=== PATIENT | female | born 1960 | race Caucasian/White ===

== ENCOUNTER 2017-03-31 23:11 | Observation (INO) | payer OTHER ==
[2017-03-31] MEDS ORDERED: NS 1,000 ML IV ONE (23:16)
--- NOTE | 2017-03-31 23:20 | EDPHY ---
H & P HPI/ROS: HPI CHIEF COMPLAINT: Abdominal pain HISTORY OF PRESENT ILLNESS: Patient is a very pleasant 56-year-old female no significant medical history does not take any daily medications she [place]. She states around 730 this evening she was standing up and sewing and developed sudden- onset abdominal pain rather severe. She states she could not stand erect. She then developed pain kind of diffusely through abdomen and now it is localized to right lower quadrant. She denies fever. Does have nausea but no vomiting. Chest pain or shortness of breath. Denies pleuritic pain. Denies urinary symptoms or back pain. Main complaint right lower quadrant pain. Currently 3/ She did receive 50 mcg IV fentanyl in route. Past Medical History: No significant medical history Past Surgical History: No significant surgical history except for bunionectomy Social History: Lives in [place], denies daily use of drugs alcohol tobacco products. Family History: Noncontributory ROS REVIEW OF SYSTEMS: A comprehensive 10 point review of systems is otherwise negative aside from elements mentioned in the history of present illness. Exam Constitutional appears well nontoxic no acute distress, triage nursing summary reviewed, vital signs reviewed, awake/alert. Eyes normal conjunctivae and sclera, EOMI, PERRLA. HENT normal inspection, atraumatic, moist mucus membranes, no epistaxis, neck supple/ no meningismus, no raccoon eyes. Respiratory clear to auscultation bilaterally, normal breath sounds, no respiratory distress, no wheezing. Cardiovascular rate normal, regular rhythm, no murmur, no edema, distal pulses normal. Gastrointestinal tender palpation right lower quadrant no peritoneal signs no rebound, no guarding, normal bowel sounds, no distension, no pulsatile mass. Genitourinary no CVA tenderness. Musculoskeletal no midline vertebral tenderness, full range of motion, no calf swelling, no tenderness of extremities, no meningismus, good pulses, neurovascularly intact. Skin pink, warm, & dry, no rash, skin atraumatic. Neurologic awake, alert and oriented x 3, AAOx3, moves all 4 extremities equally, motor intact, sensory intact, CN II-XII intact, normal cerebellar, normal vision, normal speech. Psychiatric normal mood/affect. Heme/Lymph/Immune no lymphadenopathy. Differential diagnosis includes but is not limited to and in no particular order : Bowel obstruction, appendicitis, gallbladder disease, diverticulitis, colitis , enteritis, perforated viscus, gastritis, GERD, esophagitis, urinary tract infection, pyelonephritis, kidney stones Medical Decision Making: Plan for this patient IV establishment with fluid bolus, IV Dilaudid for pain control IV Zofran for nausea check basic blood work , CT scan abdomen pelvis with IV contrast for rule out acute appendicitis. Re-evaluation: 1244: CT scan abdomen pelvis with IV contrast shows 6 mm fluid-filled appendix with no episode is seal stranding. Otherwise CT scan shows a picture looking like gastroenteritis. No acute inflammatory process seen. 0113AM: I did re-examine the patient at this time. She still has ongoing right lower quadrant pain. Given the ongoing right lower quadrant pain past surgery Dr. Samuel to come and see and evaluate the patient. Given her leukocytosis, right lower quadrant pain CT scan does show 6.3 mm appendix. 0152AM: Dr. Samuel with Surgery has seen and evaluated the patient. He will admit the patient for observation overnight for abdominal pain. Given her right lower quadrant tenderness. Source: Patient, EMS Constitutional: Initial Vital Signs Temperature (C) 36.6 C 03/31/17 23:14 Heart Rate 121 H 03/31/17 23:14 Respiratory Rate 16 03/31/17 23:14 Blood Pressure 118/75 03/31/17 23:14 O2 Sat (%) 99 03/31/17 23:14 O2 Delivery Mode Room Air Allergies/Adverse Reactions: No Known Allergies Allergy (Unverified 03/31/17 23:18) Home Medications: Medication Instructions Recorded Estrogen/Testosterone Cream 1 ivan TP DAILY 04/01/17 Herbals/Supplements -Info Only 1 ea PO DAILY 04/01/17 Progesterone Cream 1 ivan TP HS 04/01/17 Medical Decision Making - Data Points Laboratory Results: Laboratory Results 03/31/17 23:20 03/31/17 23:20 Medications Given: Discontinued Medications Hydromorphone HCl (Dilaudid) 1 mg IVP EDNOW ONE Stop: 03/31/17 23:22 Last Admin: 03/31/17 23:28 Dose: 1 mg Sodium Chloride (Ns) 1,000 mls @ 0 mls/hr IV EDNOW ONE; Wide Open PRN Reason: Protocol Stop: 03/31/17 23:17 Last Admin: 02/03/18 23:29 Dose: 1,000 mls Ketorolac Tromethamine (Toradol) 15 mg IVP ONCE ONE Stop: 04/01/17 01:48 Last Admin: 04/01/17 02:49 Dose: 15 mg Ondansetron HCl (Zofran) 4 mg IVP EDNOW ONE Stop: 03/31/17 23:22 Last Admin: 03/31/17 23:30 Dose: 4 mg Departure - Departure Disposition: [facility] Acute Clinical Impression: Abdominal pain Qualifiers: Abdominal location: right lower quadrant Qualified Code(s): R10.31 - Right lower quadrant pain Condition: Fair
[2017-03-31] MEDS ORDERED: ONDANSETRON 4 MG/2 ML VIAL IVP ONE (23:21)
[2017-03-31] MEDS ORDERED: HYDROmorphONE/DILAUDID 1 MG/ML INJ IVP ONE (23:21)
[2017-03-31] MEDS ORDERED: HYDROmorphONE/DILAUDID 1 MG/ML INJ ONE (23:22)
[2017-03-31 23:29] LABS: PLATELET COUNT 211 10^3/uL (150-400)
[2017-03-31 23:38] LABS: INR 0.94 (0.83-1.16); PROTIME(PATIENT) 12.8 SEC (12.0-15.0)
[2017-03-31] MEDS ORDERED: IOPAMIDOL (ISOVUE-300) 100 ML BTL ONE (23:55)
[2017-04-01] MEDS ORDERED: KETOROLAC 15 MG/1 ML SDV IVP ONE (01:47)
[2017-04-01] MEDS ORDERED: LR 1,000 ML IV SCH (02:00)
--- NOTE | 2017-04-01 03:06 | GHP ---
[f rep st] PREOP HISTORY AND PHYSICAL DATE OF ADMISSION: 04/01/2017 HISTORY OF PRESENT ILLNESS: This 56-year-old patient presents to the emergency room after several hours of abdominal pain. It started in the mid epigastrium, localized in the right lower quadrant. Patient has not had any nausea or vomiting, but she has felt slightly nauseous. The pain has been quite consistent. She denies any tactile fevers. She has not had any previous episodes. Pain was 10/10. She lives approximately an hour away and is alone at home because her is on a skiing trip. She was found to have white blood cell count of 14,000, and exam and story are consistent with acute appendicitis. However, CT scan shows a 6 mm appendix without any periappendiceal fluid, which is incongruous with acute appendicitis. PAST MEDICAL HISTORY: None. PAST SURGICAL HISTORY: Bunion surgery x2. MEDICATIONS: She takes no medications. ALLERGIES: She has no known drug allergies. She has occasional seasonal allergies. BODY AFTER ALLERGIES: HABITS: She has occasional alcohol use. Denies any tobacco or illicit drug use. SOCIAL HISTORY: The patient is , lives in [place]. She has 2 children who are alive and well. FAMILY HISTORY: Negative for any colon cancer, inflammatory bowel disease, or other chronic issues. PHYSICAL EXAMINATION: VITAL SIGNS: On exam today the patient is afebrile with temperature 36.6, blood pressure 115/75, heart rate 109, and respiratory rate 16. Satting 92% on room air. HEENT: Sclerae anicteric. Pupils are reactive. Oropharynx is moist. LUNGS: Clear bilaterally. HEART: Regular heart tones. NECK: No JVD, thyromegaly, supraclavicular or cervical adenopathy. Trachea is midline. ABDOMEN: Soft. Tender in the right lower quadrant with positive rebound sign. She has no psoas sign, no obturator sign. She has no right CVA tenderness. VASCULAR: 2+ over 2+ femoral and dorsalis pedis pulses. DATA REVIEWED: White blood cell count 14,000 , hemoglobin 13.4, hematocrit 38.4 , platelet count of 211. She has a left shift of 86% neutrophils. Blood chemistry shows sodium 144, potassium 4, chloride 107, bicarb 23, BUN 17, creatinine 1.0, glucose 92. Transaminases and bilirubins are all normal. Lipase is 187. HCG is negative. CT scan personally reviewed on PACS, agree with findings. However, the patient is slim without a lot of intraabdominal fat, making the scan more difficult to read. IMPRESSION: Abdominal pain, possibly appendicitis. PLAN: The plan would be to admit, keep n.p.o., IV fluids, and reexamine in the morning. If the patient has any improvement of her symptoms, plan will be to not operate. The risks, benefits, and alternatives to surgery have been outlined clearly with the patient. All questions were addressed. The patient will be reexamined in the morning. She will be placed in observation. No antibiotics at this time. /[id number]/MODL MTDD
[2017-04-01 07:51] VITALS: RESP 12
--- NOTE | 2017-04-01 08:40 | SOAPPROG ---
SOAP Progress Note Assessment/Plan: Assessment/Plan: Isabel Maldonado is a 56-year-old woman who presented last night with signs of acute appendicitis with leukocytosis, history and physical consistent with the findings. CT scan of the abdomen pelvis was negative. She persisted in having pain overnight. This morning the patient has much less pain she feels otherwise well she is afebrile and hungry. Regular rate and rhythm Clear to auscultation Abdomen minimally tender no rebound no peritoneal signs Impression/plan: Abdominal pain possible appendicitis still will give a challenge of p.o. clear liquids and follow up later on this morning. The risks benefits and alternatives to surgery were clearly outlined to the patient. The option for non operative treatment for appendicitis were also reviewed. Patient would like to continue with non operative treatment without antibiotics all questions were addressed. 04/01/17 08:38 Objective: Vital Signs Temp Pulse Resp BP Pulse Ox 36.7 C 71 12 80/51 L 96 04/01/17 07:49 04/01/17 07:49 04/01/17 07:49 04/01/17 07:49 04/01/17 07:49 03/31/17 04/01/17 04/02/17 05:59 05:59 05:59 Intake Total 625 Balance 625 PT 12.8 SEC (12.0-15.0) 03/31/17 23:20 INR 0.94 (0.83-1.16) 03/31/17 23:20 ICD10 Worksheet Patient Problems: Problems Problem Status Onset Abdominal pain Acute
[2017-04-01 11:27] VITALS: BP 84/51; PULSE 80; TEMP 99; O2SAT 91
--- NOTE | 2017-04-01 13:55 | ASMTCMCOM ---
CM Note CM Note Notes: 56 year old female admitted for abdominal pain-appendicitis. Pain has subsided, monitoring, may not need surgery. Lives with in [place]. No discharge needs anticipated. Date Signed: 04/01/2017 01:54 PM Electronically Signed By:Alesia King LCSW
--- NOTE | 2017-04-01 15:10 | ASDISCHSUM ---
Discharge Information Plan Status:Home with No Needs Medically Cleared to Leave:03/31/2017 Discharge Date:04/01/2017 03:05 PM CM D/C Disposition:Home, Routine, Self-Care ADT D/C Disposition:Home, Routine, Self-Care Projected Discharge Date:04/01/2017 03:00 PM Transportation at D/C:Family Discharge Delay Reason: Follow-Up Date:04/01/2017 03:00 PM Discharge Slot: Final Diagnosis:Appendicitis Placement Information Patient Contact Information Contact Name:MADELINE Relationship: [facility] [address] [employer] Work Phone: [facility] Phone: [facility]/Zip Code:[place] [address] Email: Financial Information Financial Class:HMO and PPO Plans Primary Plan Desc:[facility] Primary Plan Number:[id number] Secondary Plan Desc: Secondary Plan Number: Assessment Information BC CM Progress Note CM Note CM Note Notes: 56 year old female admitted for abdominal pain-appendicitis. Pain has subsided, monitoring, may not need surgery. Lives with in [place]. No discharge needs anticipated. Date Signed: 04/01/2017 01:54 PM Electronically Signed By:Alesia King LCSW Case Management Discharge Plan Note Case Management Discharge Discharge Order Complete? Answers: Yes Patient to Obtain Answers: Independently Medications Transportation Arranged Answers: Family/Friends Transport will Pick (Date 04/01/2017 03:00 PM & Time) Family Notified Answers: Yes Notes: to transport [facility] Discharge Comments Notes: Patient has been discharge home, no needs. Date Signed: 04/01/2017 03:09 PM Electronically Signed By:Alesia King LCSW Intervention Information
== END 2017-04-01 15:05 | disposition home or self-care (01) ==
LOC: EDUNIT# → EDBD → F2W 04-01 02:35
PROVIDERS: ADMIT Surgery; ATTEND Surgery
DX: R10.31 Right lower quadrant pain (principal); D72.829 Elevated white blood cell count, unspecified; R11.0 Nausea
CPT/HCPCS: 74177; G0378; J1170; J1885; J2405; Q9967

== ENCOUNTER 2018-05-19 01:39 | Observation (INO) | payer OTHER ==
--- NOTE | 2018-05-19 01:43 | EDPHY ---
H & P Time Seen by Provider: 05/19/18 01:43 HPI/ROS: HPI CHIEF COMPLAINT: Chest pain HISTORY OF PRESENT ILLNESS: Patient is a very pleasant 57-year-old female, she is on hormone replacement therapy, additionally she has a history of microscopic colitis, no cardiac history. She presents emergency room with chest pain. She describes pain as sharp worse when she takes deep breath in. However it radiates to her left shoulder down her left arm tonight this is what prompted her to come to the emergency room. She reports over the last week she has had intermittent chest pain. She has been feeling at all week. However tonight it got worse she could not get comfortable could not sleep. She describes it as currently 8/10. She denies any shortness of breath, denies diaphoresis, denies fever, denies recent illness, denies productive cough. Past Medical History: denies significant medical history for microscopic colitis, hormone replacement Past Surgical History: Denies significant surgical history Social History: Denies drugs alcohol tobacco daily. Family History: Denies significant family history of cardiovascular disease. ROS REVIEW OF SYSTEMS: 10 Systems were reviewed and negative with the exception of the elements mentioned in the history of present illness. Exam Constitutional triage nursing summary reviewed, vital signs reviewed, awake/ alert. Eyes normal conjunctivae and sclera, EOMI, PERRLA. HENT normal inspection, atraumatic, moist mucus membranes, no epistaxis, neck supple/ no meningismus, no raccoon eyes. Respiratory clear to auscultation bilaterally, normal breath sounds, no respiratory distress, no wheezing. Cardiovascular rate normal, regular rhythm, no murmur, no edema, distal pulses normal. Gastrointestinal soft, non-tender, no rebound, no guarding, normal bowel sounds, no distension, no pulsatile mass. Genitourinary no CVA tenderness. Musculoskeletal no midline vertebral tenderness, full range of motion, no calf swelling, no tenderness of extremities, no meningismus, good pulses, neurovascularly intact. Skin pink, warm, & dry, no rash, skin atraumatic. Neurologic awake, alert and oriented x 3, AAOx3, moves all 4 extremities equally, motor intact, sensory intact, CN II-XII intact, normal cerebellar, normal vision, normal speech. Psychiatric normal mood/affect. Heme/Lymph/Immune no lymphadenopathy. Differential Diagnosis: Differential diagnosis includes but is not limited to: ACS, atypical chest pain, pneumothorax, pneumonia, pulmonary embolism, aortic dissection, congestive heart failure, tumor, musculoskeletal pain, esophageal pain, GERD, peptic ulcer disease, pancreatitis Medical Decision Making: Plan for this patient IV establishment IV fluid bolus , EKG, troponin, cardiac monitor technician, rule out acute coronary syndrome, basic labs, D-dimer, chest x-ray, full-dose aspirin and nitroglycerin will be given. Re-evaluation: EKG interpretation by me on record in [employer] system. Impression time of EKG 1:46 a.m., sinus rhythm rate of 94, slight ST depression inferior leads to 3 AVF, slight ST depression V4 V5 V6. No ST elevation. ED x-ray chest one view: Negative for acute cardiopulmonary disease. Patient's troponin negative. D-dimer pending. D-dimer is noted to be positive. In the setting that she takes hormone replacement has pleuritic pain will proceed with CT angiogram of the chest. The patient consents for this. Full-dose aspirin as been given, as well as nitroglycerin. CT angiogram of the chest the faxed to me at time 3:15 a.m., no evidence of PE or other acute cardiopulmonary process visualized. EKG interpretation by me on record in [employer] system. Impression time of EKG 3:57 a.m., sinus rhythm rate of 78, with no signs of acute ischemia. Updated the patient about hospital admission for chest pain. She has agreed for admission for further cardiac evaluation. I spoke with the hospitalist service Dr. Zheng Agrees to admit. Source: Patient - Medical/Surgical History Hx Asthma: No Hx Chronic Respiratory Disease: No Hx Diabetes: No Hx Cardiac Disease: No Hx Renal Disease: No Hx Cirrhosis: No Hx Alcoholism: No Hx HIV/AIDS: No Hx Splenectomy or Spleen Trauma: No Other PMH: IBS, Shingles 2016 - Social History Smoking Status: Never smoked Constitutional: Initial Vital Signs Temperature (C) 36.7 C 05/19/18 01:40 Heart Rate 99 05/19/18 01:40 Respiratory Rate 20 05/19/18 01:40 Blood Pressure 134/88 H 05/19/18 01:40 O2 Sat (%) 100 05/19/18 01:40 O2 Delivery Mode Nasal Cannula O2 (L/minute) 2 Allergies/Adverse Reactions: No Known Allergies Allergy (Unverified 05/19/18 01:48) Home Medications: Medication Instructions Recorded Estrogen/Testosterone Cream 1 ivan TP DAILY 04/01/17 Herbals/Supplements -Info Only 1 ea PO DAILY 04/01/17 Progesterone Cream 1 ivan TP HS 04/01/17 Tretinoin 1 ivan TP HS 05/19/18 Medical Decision Making - Diagnostics Imaging Results: Imaging Impressions Chest X-Ray 05/19/18 01:46 Impression: Mild apical pleural-parenchymal scarring. Otherwise, normal chest x- ray study. - Data Points Laboratory Results: Laboratory Results 05/19/18 01:55 05/19/18 01:55 Medications Given: Discontinued Medications Aspirin (Aspirin) 324 mg PO EDNOW ONE Stop: 05/19/18 01:47 Last Admin: 05/19/18 02:01 Dose: 324 mg Enoxaparin Sodium (Lovenox) 40 mg SC DAILY TAMMY Stop: 11/15/18 08:59 Last Admin: 05/19/18 08:35 Dose: 40 mg Fentanyl (Sublimaze) 50 mcg IVP EDNOW ONE Stop: 05/19/18 02:31 Last Admin: 05/19/18 02:34 Dose: 50 mcg Hydromorphone HCl (Dilaudid) 0.5 mg IVP EDNOW ONE Stop: 05/19/18 03:47 Last Admin: 05/19/18 04:04 Dose: 0.5 mg Sodium Chloride (Ns) 1,000 mls @ 0 mls/hr IV EDNOW ONE; Wide Open PRN Reason: Protocol Stop: 05/19/18 01:47 Last Admin: 05/19/18 02:01 Dose: 1,000 mls Ketorolac Tromethamine (Toradol) 15 mg IVP Q6H PRN PRN Reason: Chest pain Stop: 05/24/18 04:14 Last Admin: 05/19/18 05:07 Dose: 15 mg Lorazepam (Ativan Injection) 0.5 mg IVP ONCE ONE Stop: 05/19/18 04:43 Last Admin: 05/19/18 04:45 Dose: 0.5 mg Lorazepam (Ativan Injection) 0.5 mg IVP EDNOW ONE Stop: 05/19/18 05:01 Last Admin: 05/19/18 05:03 Dose: Not Given Nitroglycerin (Nitrostat) 0.4 mg SL EDNOW ONE Stop: 05/19/18 01:55 Last Admin: 05/19/18 02:03 Dose: 0.4 mg Point of Care Test Results: Chemistry 05/19/18 01:53 POC Troponin I 0.01 ng/mL ng/mL (0.00-0.08) Departure - Departure Disposition: [facility] Inpatient Acute Clinical Impression: Chest pain Qualifiers: Chest pain type: unspecified Qualified Code(s): R07.9 - Chest pain, unspecified Condition: Good
[2018-05-19] MEDS ORDERED: ASPIRIN 81 MG CHEWABLE TAB PO ONE (01:46)
[2018-05-19] MEDS ORDERED: NS 1,000 ML IV ONE (01:46)
[2018-05-19] MEDS ORDERED: NITROGLYCERIN 0.4 MG BTL SL ONE (01:54)
[2018-05-19 02:03] LABS: PLATELET COUNT 229 10^3/uL (150-400)
[2018-05-19 02:11] LABS: INR 0.91 (0.83-1.16); PROTIME(PATIENT) 11.9 SEC (12.0-15.0)
[2018-05-19] MEDS ORDERED: fentaNYL 100 MCG/2 ML INJ IVP ONE (02:30)
[2018-05-19] MEDS ORDERED: IOPAMIDOL (ISOVUE-370) 150 ML BTL IV ONE (02:33)
[2018-05-19] MEDS ORDERED: HYDROmorphONE/DILAUDID 2 MG/ML INJ IVP ONE (03:46)
[2018-05-19] MEDS ORDERED: ACETAMINOPHEN 325 MG TAB PO PRN (03:56)
[2018-05-19] MEDS ORDERED: ONDANSETRON DISINTEGRATING 4 MG TAB PO PRN (03:56)
[2018-05-19] MEDS ORDERED: ONDANSETRON 4 MG/2 ML VIAL IVP PRN (03:56)
[2018-05-19] MEDS ORDERED: NITROGLYCERIN 0.4 MG BTL SL PRN (03:58)
[2018-05-19] MEDS ORDERED: KETOROLAC 15 MG/1 ML SDV IVP PRN (04:09)
--- NOTE | 2018-05-19 04:20 | PDGENHP ---
History and Physical - Chief Complaint Chest pain - History of Present Illness 57 yo F w/ no significant PMHx presents with chest pain. The patient tells me she has been experiencing central chest pain for about 1 week. She states the pain is positional and pleuritic. The pain is not associated with exertion. She actually went on a hike yesterday and tells me her pain felt better. Of note, she had a viral upper respiratory infection last week. She has no risk factors for CAD and no prior history. Her father had stents placed at age 85. She is being admitted for observation. Case discussed with ED physician Dr. Alonso; records reviewed and summarized above. History Information - Allergies/Home Medication List Allergies/Adverse Reactions: No Known Allergies Allergy (Unverified 05/19/18 01:48) Home Medications: Estrogen/Testosterone Cream 1 ivan TP DAILY 04/01/17 [Last Taken Unknown] Herbals/Supplements -Info Only 1 ea PO DAILY 04/01/17 [Last Taken Unknown] Progesterone Cream 1 ivan TP HS 04/01/17 [Last Taken Unknown] I have personally reviewed and updated: family history, medical history - Past Medical History no pertinent PMH - Surgical History Additional surgical history: Bunion surgeries - Family History Positive for: CAD (Father had stents at age 85) - Social History Smoking Status: Never smoked Review of Systems Review of Systems: ROS: 10pt was reviewed & negative except for what was stated in HPI & below Physical Exam Physical Exam: Temp Pulse Resp BP Pulse Ox 36.7 C 97 16 124/86 H 100 05/19/18 01:40 05/19/18 04:05 05/19/18 04:05 05/19/18 04:05 05/19/18 04:05 O2 (L/minute) 2 Constitutional: no apparent distress, appears nourished Eyes: PERRL, EOMI Ears, Nose, Mouth, Throat: moist mucous membranes, no oral mucosal ulcers Cardiovascular: regular rate and rhythym, no murmur, rub, or gallop Respiratory: no respiratory distress, no rales or rhonchi Gastrointestinal: normoactive bowel sounds, soft, non-tender abdomen Skin: warm, normal color Musculoskeletal: full muscle strength, no muscle tenderness Neurologic: AAOx3, CN II-XII Intact Psychiatric: interacting appropriately, not anxious Lab Data & Imaging Review 05/19/18 01:55 05/19/18 01:55 WBC 6.12 10^3/uL (3.80-9.50) 05/19/18 01:55 RBC 4.16 10^6/uL (4.18-5.33) L 05/19/18 01:55 Hgb 13.8 g/dL (12.6-16.3) 05/19/18 01:55 Hct 39.9 % (38.0-47.0) 05/19/18 01:55 MCV 95.9 fL (81.5-99.8) 05/19/18 01:55 MCH 33.2 pg (27.9-34.1) 05/19/18 01:55 MCHC 34.6 g/dL (32.4-36.7) 05/19/18 01:55 RDW 12.7 % (11.5-15.2) 05/19/18 01:55 Plt Count 229 10^3/uL (150-400) 05/19/18 01:55 MPV 9.6 fL (8.7-11.7) 05/19/18 01:55 Neut % (Auto) 55.8 % (39.3-74.2) 05/19/18 01:55 Lymph % (Auto) 29.9 % (15.0-45.0) 05/19/18 01:55 Cole % (Auto) 11.6 % (4.5-13.0) 05/19/18 01:55 Eos % (Auto) 2.0 % (0.6-7.6) 05/19/18 01:55 Baso % (Auto) 0.5 % (0.3-1.7) 05/19/18 01:55 Nucleat RBC Rel Count 0.0 % (0.0-0.2) 05/19/18 01:55 Absolute Neuts (auto) 3.42 10^3/uL (1.70-6.50) 05/19/18 01:55 Absolute Lymphs (auto) 1.83 10^3/uL (1.00-3.00) 05/19/18 01:55 Absolute Monos (auto) 0.71 10^3/uL (0.30-0.80) 05/19/18 01:55 Absolute Eos (auto) 0.12 10^3/uL (0.03-0.40) 05/19/18 01:55 Absolute Basos (auto) 0.03 10^3/uL (0.02-0.10) 05/19/18 01:55 Absolute Nucleated RBC 0.00 10^3/uL (0-0.01) 05/19/18 01:55 Immature Gran % 0.2 % (0.0-1.1) 05/19/18 01:55 Immature Gran # 0.01 10^3/uL (0.00-0.10) 05/19/18 01:55 PT 11.9 SEC (12.0-15.0) L 05/19/18 01:55 INR 0.91 (0.83-1.16) 05/19/18 01:55 APTT 22.2 SEC (23.0-38.0) L 05/19/18 01:55 D-Dimer 0.56 ug/mLFEU (0.00-0.50) H 05/19/18 01:55 Sodium 140 mEq/L (135-145) 05/19/18 01:55 Potassium 4.0 mEq/L (3.5-5.2) 05/19/18 01:55 Chloride 106 mEq/L (97-110) 05/19/18 01:55 Carbon Dioxide 24 mEq/l (22-31) 05/19/18 01:55 Anion Gap 10 mEq/L (6-14) 05/19/18 01:55 BUN 23 mg/dL (7-23) 05/19/18 01:55 Creatinine 1.0 mg/dL (0.6-1.0) 05/19/18 01:55 Estimated GFR 57 05/19/18 01:55 Glucose 97 mg/dL (70-100) 05/19/18 01:55 Calcium 9.9 mg/dL (8.5-10.4) 05/19/18 01:55 POC Troponin I 0.01 ng/mL (0.00-0.08) 05/19/18 01:53 NT-Pro-B Natriuret Pep 163 pg/mL (0-125) H 05/19/18 01:55 Visualized and Interpreted EKG results: Yes EKG Interpretation: Positive for: normal sinsus rhythm, ST depression (Mild, inferior and lateral leads) Assessment & Plan Assessment: 57 yo F presents with chest pain. Plan: 1. Chest pain - Possibly pericarditis noting that pain is central, positional, and pleuritic. Pain does not have an exertional component and actually felt improved while hiking yesterday. Her HEART score is 2 making her low risk for coronary artery disease. ECG (personally reviewed/interpreted) does have subtle STD's in inferior and lateral leads but these are of unclear significance. Troponin negative on arrival. - Observe in PCU - Monitor on telemetry, trend cardiac enzymes (next at 0900) - Will obtain TTE - Toradol PRN for pain - I do not feel she needs urgent stress testing unless work-up reveals concerning findings Diet - Regular Code - Full Ppx - LMWH Dispo - Admit under observation status
[2018-05-19] MEDS ORDERED: LORazepam 2 MG/ML INJ ONE (04:42)
[2018-05-19] MEDS ORDERED: LORazepam 2 MG/ML INJ IVP ONE ×2 (04:42→05:00)
[2018-05-19 08:42] VITALS: BP 87/51
[2018-05-19] MEDS ORDERED: ENOXAPARIN 40 MG/0.4 ML SYR SC SCH (09:00)
--- NOTE | 2018-05-19 09:56 | ECHO ---
[email or web address] [address] Main: [phone] Echocardiography Examination Transthoracic Name: TOM BALDWIN MR#: [id number] Study Date: 05/19/2018 Study Time: 08:10 AM Date of : 1960 Age: 57 year(s) Height: 162.6 cm (64 in.) Weight: 47.17 kg (104 lb.) BSA: 1.48 m2 Gender: Female Examination: Echo Contrast: Image Quality: Adequate Rhythm: Normal sinus rhythm Heart Rate: 76 bpm BP: 107 mmHg/64 mmHg Indication: positional chest pain Procedure Staff Referring Physician: Head Of Sales Promotion: Carmen Fontaine RDCS Reading Physician: Riley Keenan MD Requesting Provider: Indication: positional chest pain Measurements Chambers AV/MV Label Value Normal Value Label Value Normal Value IVSd, 2D 0.7 cm (0.6cm - 1.1cm) AV PGmax 6 mmHg LVDd, 2D 3.8 cm (3.9cm - 5.3cm) AV Vmax 1.22 m/s LVDs, 2D 2.4 cm (2.1cm - 4cm) LEISA (continuity eq. 1.3 cm2 LVEF, 2D 67 % (54% - 74%) Vmax) LVEF, BP 61 % (55% - 70%) MV A Vmax 0.69 m/s LVOT PGmax 2 mmHg MV DT 173 ms LVOT Vmax 0.64 m/s (0.7m/s - 1.1m/s) MV E' lateral 0.1 m/s LVOTd 1.8 cm (1.8cm - 2cm) MV E' mean 0.08 m/s LVPWd, 2D 0.7 cm MV E' septal 0.05 m/s RVDd, 2D 2.3 cm (1.9cm - 3.8cm) MV E Vmax 0.95 m/s TAPSE 2.1 cm MV E/A 1.38 LA Volume, BP 20 ml (22ml - 52ml) MV E/E' lateral 9.5 LADs, 2D 2.5 cm (2.7cm - 3.8cm) MV E/E' mean 12.67 LAESV index, BP 13.5 ml/m2 MV E/E' septal 17.7 (0.5 - 1.7) RA Area 8.4 cm2 TV/PV Additional Vessels Label Value Normal Value Label Value Normal Value RA Pressure 10 mmHg AoRoot, MM 2.4 cm (2.2cm - 3.7cm) RVSP 29 mmHg TR Pmax 19 mmHg TR Vmax 2.16 m/s Patient: TOM BALDWIN Study Date: 05/19/2018 Page 1 of 2 08:10 AM PV PGmax 2 mmHg PV Vmax, Caliper 0.65 m/s (0.6m/s - 0.9m/s) Conclusions Normal left ventricular size and function. LVEF estimated at 60 65% and calculated 61% by Wagoner's. Normal left ventricular free wall thickness and wall motion. Normal diastolic function. Normal appearing valvular structures. Trivial mitral regurgitation with [id number] tricuspid regurgitation. Normal estimated RVSP. Trivial pericardial effusion. Mild dilatation of the inferior vena cava with appropriate inspiratory collapse. Findings Left Ventricle: Left ventricle is normal in size. Normal global systolic left ventricular function. The ejection fraction, measured by Simpsons method, is 61 %. Left ventricle wall thickness is normal. There are no regional wall motion abnormalities. Left ventricular diastolic function parameters are normal. Right Ventricle: Normal size right ventricle. Right ventricular wall thickness is normal. Right ventricular systolic function is normal. Left Atrium: The left atrium is normal in size. IAS: Normal appearing atrial septum. Right Atrium: The right atrium is normal in size. Mitral Valve: Normal . Trivial mitral regurgitation. No mitral valve stenosis. Aortic Valve: Aortic leaflets exhibit normal cuspal separation. No aortic valve regurgitation. There is no aortic stenosis. The aortic valve is probably trileaflet. Tricuspid Valve: Tricuspid valve leaflets are normal in appearance and function. Mild to moderate tricuspid regurgitation. No tricuspid valve stenosis. Right Ventricular systolic pressure is measured at 29 mmHg. Pulmonary artery pressure normal. Pulmonic Valve: Pulmonic leaflets exhibit normal cuspal separation. No pulmonic valve regurgitation is evident. Aorta: The aortic root size in M-mode measures 2.4 cm. The aortic root exhibits normal size. Aorta Measurements AoRoot, MM is 2.4 cm. IVC: The inferior vena cava is mildly dilated. There is greater the 50% respiratory excursion. Pericardium: A trivial pericardial effusion was identified. Exam Details Procedure Ordered: Echo Procedure Status: Routine study Image Quality: Adequate Facility Location: Cardiac Echo 1 (No Signature Object) Patient: TOM BALDWIN Study Date: 05/19/2018 Page 2 of 2 08:10 AM [id number]
--- NOTE | 2018-05-19 10:49 | ASMTCMCOM ---
CM Note CM Note Notes: Pt is a 57 y/o female admitted for chest pain. Pt will most likely d/c independent when medically stable. No therapies ordered at this time. CM available for changes. Plan: Independent Date Signed: 05/19/2018 10:48 AM Electronically Signed By:MALDONADO Manuel
--- NOTE | 2018-05-19 15:35 | PDDCSUM ---
Discharge Summary Discharge Summary: Discharge diagnosis chest pain The patient was admitted for evaluation of chest pain. Her Heart score was 1, possibly 2 at best although her history was not suspicious. Her ECG was normal, and had no ST elevation with NC depression suggestive of pericarditis or any acute st/t wave changes suggestive of ischemia. Troponins were negative x3. An echocardiogram was obtained which was normal. She did have a trivial pericardial effusion. Was thought that she might have pericarditis although she did not meet criteria. By morning her pain had resolved. A discussion was had with the patient regarding starting her on treatment for presumed pericarditis with ibuprofen 800 mg three times daily and colchicine. Given that the pain had resolved the patient wished to be discharged without the medications as she said that she could not tolerate ibuprofen due to gastric upset. I did recommend that she follow up with her primary care provider in the next week regardless and that if any further symptoms returned that she follow up in the ER. She understood and agreed to the plan. Disposition Home independent
--- NOTE | 2018-05-23 08:55 | CPEKG ---
Test Reason : repeat Blood Pressure : / mmHG Vent. Rate : 094 BPM Atrial Rate : 094 BPM P-R Int : 123 ms QRS Dur : 088 ms QT Int : 360 ms P-R-T Axes : 075 -38 058 degrees QTc Int : 451 ms Sinus rhythm Probable left atrial enlargement Left axis deviation Confirmed by Arjun Mccall ([id number]) on 05/23/2018 8:54:49 AM Referred By: Jairon Zheng Confirmed By:Arjun Mccall
--- NOTE | 2018-05-23 08:56 | CPEKG ---
Test Reason : chest pain Blood Pressure : / mmHG Vent. Rate : 081 BPM Atrial Rate : 082 BPM P-R Int : 142 ms QRS Dur : 088 ms QT Int : 360 ms P-R-T Axes : 068 -36 050 degrees QTc Int : 418 ms Sinus rhythm Left axis deviation Low voltage, extremity and precordial leads Confirmed by Arjun Mccall ([id number] on 05/23/2018 8:56:15 AM Referred By: Jairon Zheng Confirmed By:Arjun Mccall
== END 2018-05-19 12:54 | disposition home or self-care (01) ==
LOC: F2W 04:54
PROVIDERS: ADMIT Student in an Organized Health Care Education/Training Program; ATTEND Student in an Organized Health Care Education/Training Program
DX: R07.9 Chest pain, unspecified (principal); R79.89 Other specified abnormal findings of blood chemistry; E86.9 Volume depletion, unspecified; Z79.890 Hormone replacement therapy; Z82.49 Family history of ischemic heart disease and other diseases of the circulatory system
CPT/HCPCS: 71045; 71275; 93306; G0378; 84484-ER; 96374; J1170; J1650; J1885; J2060; J3010; Q9967